=== PATIENT | female | born 1985 | race Two or more races ===

== ENCOUNTER 2021-06-17 17:43 | Emergency (ER) | payer SELFPAY ==
[~2021-06-17] VITALS: Ht 160 cm; Wt 65.8 kg
--- NOTE | 2021-06-17 18:00 | NUR ---
LAMONTE C/O R FOOT PAIN 6/10 W BRUISE x 1WK "WHILE IN SHOWER, I TURNED AND HEARD A CLICK, TOOK DICLOFENAC x 4DAYS. WILL CONTINUE TO MONITOR THE PATIENT.
[2021-06-17] MEDS ORDERED: ACET-907 PO (19:26)
[2021-06-17 20:08] VITALS: BP 120/60
--- NOTE | 2021-06-17 20:08 | NUR ---
Patient discharged to home in stable condition. Written and verbal after care instructions given. Patient verbalizes understanding of instruction.
== END 2021-06-17 20:09 | disposition home or self-care (01) ==
LOC: ER 17:47
DX: S93.691A Other sprain of right foot, initial encounter (principal); Z98.890 Other specified postprocedural states; Z88.6 Allergy status to analgesic agent; X58.XXXA Exposure to other specified factors, initial encounter; Y93.89 Activity, other specified; Y92.89 Other specified places as the place of occurrence of the external cause; Y99.8 Other external cause status
CPT/HCPCS: 73630-TC